=== PATIENT | female | born 1980 | race American Indian/Alaskan Native ===

== ENCOUNTER 2017-10-14 09:14 | Emergency (ER) | payer OTHER ==
[2017-10-14 10:16] LABS: Basophils # (Auto) 0.1 K/mm3 (0.0-0.1); Basophils % (Auto) 0.7 % (0.0-1.8); Eosinophils # (Auto) 0.3 K/mm3 (0.0-0.4); Eosinophils % (Auto) 2.7 % (0.0-4.3); Hematocrit 46.5 % (30.3-42.9); Lymphocytes # (Auto) 2.6 K/mm3 (1.2-5.4); Lymphocytes % (Auto) 25.9 % (13.4-35.0); Mean Corpuscular HGB Conc 34 % (30-34); Mean Corpuscular Hemoglobin 31 pg (28-32); Mean Corpuscular Volume 91 fl (79-97); Monocytes # (Auto) 0.5 K/mm3 (0.0-0.8); Monocytes % (Auto) 4.9 % (0.0-7.3); Platelet Count 303 K/mm3 (140-440); Red Blood Count 5.13 M/mm3 (3.65-5.03); Red Cell Distribution Width 13.4 % (13.2-15.2)
[2017-10-14 10:32] LABS: BUN/Creatinine Ratio 10; Blood Urea Nitrogen 7 mg/dL (7-17); Calcium 8.6 mg/dL (8.4-10.2); Hemolysis Index 7
--- NOTE | 2017-10-14 10:44 | Emergency Department Report ---
ED Psych HPI - General Chief Complaint: Medical Clearance Stated Complaint: KASHIF EVSHAHIDA Time Seen by Provider: 10/14/17 10:39 Source: patient, EMS Mode of arrival: Stretcher - History of Present Illness Initial Comments: The patient is a 32 year old female that states that she has been depressed for some time but not currently under therapy. He states that she took a total of 20 pills or less beginning at 4:30 this morning. They included Amoxil, Lortab, ibuprofen, tramadol and she states 4 of a unknown antidepressant which was not hers. She called EMS when she began to experience itching and "hives". She did not have any respiratory symptoms. She told the nurse several minutes after she was here that she had substernal chest pain and so an EKG was performed. At the time of my arrival the chest pain was resolved and the patient had no specific symptoms other than her ongoing depression. She relates this to situational with her family. She has never had a previous suicidal gesture. MD Complaint: suicidal ideation, feels depressed -: Gradual, month(s) Associated Psychiatric Symptoms: suicidal ideation History of same: No Quality: intermittent Improves With: none Worsens With: none Context: significant life stressor Associated Symptoms: denies other symptoms (now asymptomatic otherwise) Treatments Prior to Arrival: none (no psychiatric counseling) - Related Data Previous Rx's Medication Instructions Recorded Last Taken Type Amoxicillin 1,000 mg PO Q6HR #60 tablet 09/10/14 Unknown Rx HYDROcodone/APAP 5-325 [[place] 1 each PO Q6HR PRN #60 tablet 09/10/14 Unknown Rx 5/325] Ibuprofen [Motrin] 600 mg PO Q8H PRN #60 tablet 11/06/14 Unknown Rx traMADol [Ultram] 50 mg PO Q6HR PRN #20 tablet 11/06/14 Unknown Rx Allergies Allergy/AdvReac Type Severity Reaction Status Date / Time amoxicillin Allergy Hives Verified 10/14/17 09:42 ED Review of Systems ROS: Stated complaint: KASHIF EVAL Other details as noted in HPI Constitutional: denies: chills, fever Eyes: denies: eye pain, eye discharge, vision change ENT: denies: ear pain, throat pain Respiratory: denies: cough, shortness of breath, wheezing Cardiovascular: denies: chest pain, palpitations Endocrine: no symptoms reported Gastrointestinal: denies: abdominal pain, nausea, diarrhea Genitourinary: denies: urgency, dysuria, discharge Musculoskeletal: denies: back pain, joint swelling, arthralgia Skin: as per HPI, other (hives and itching). denies: rash, lesions Neurological: denies: headache, weakness, paresthesias Psychiatric: depression, suicidal thoughts. denies: anxiety Hematological/Lymphatic: denies: easy bleeding, easy bruising ED Past Medical Hx - Past Medical History Previous Medical History?: No Additional medical history: Pt reports extensive family hx of Bipolar/ Schizophrenia - Surgical History Past Surgical History?: Yes Additional Surgical History: tubal ligation - Social History Smoking Status: Current Every Day Smoker Substance Use Type: Cocaine - Medications Home Medications: Home Medications Medication Instructions Recorded Confirmed Last Taken Type Amoxicillin 1,000 mg PO Q6HR #60 tablet 09/10/14 Unknown Rx HYDROcodone/APAP 5-325 [[place] 1 each PO Q6HR PRN #60 tablet 09/10/14 Unknown Rx 5/325] Ibuprofen [Motrin] 600 mg PO Q8H PRN #60 tablet 11/06/14 Unknown Rx traMADol [Ultram] 50 mg PO Q6HR PRN #20 tablet 11/06/14 Unknown Rx ED Physical Exam - General Limitations: No Limitations General appearance: alert, in no apparent distress - Head Head exam: Present: atraumatic, normocephalic - Eye Eye exam: Present: normal appearance, PERRL, EOMI. Absent: scleral icterus - ENT ENT exam: Present: normal orophraynx, mucous membranes moist - Neck Neck exam: Present: normal inspection, other (no swelling). Absent: tenderness , meningismus - Respiratory Respiratory exam: Present: normal lung sounds bilaterally. Absent: respiratory distress - Cardiovascular Cardiovascular Exam: Present: regular rate, normal rhythm. Absent: systolic murmur, diastolic murmur, rubs, gallop - GI/Abdominal GI/Abdominal exam: Present: soft, normal bowel sounds. Absent: distended, tenderness, guarding, rebound, rigid - Extremities Exam Extremities exam: Present: normal inspection, full ROM, normal capillary refill. Absent: tenderness, pedal edema, joint swelling, calf tenderness - Back Exam Back exam: Present: normal inspection - Neurological Exam Neurological exam: Present: alert, oriented X3, CN II-XII intact. Absent: motor sensory deficit - Psychiatric Psychiatric exam: Present: depressed, flat affect - Skin Skin exam: Present: warm, dry, intact, normal color. Absent: rash ED Course Vital Signs 10/14/17 10/14/17 10/14/17 09:19 09:31 09:34 Temperature 98.0 F Pulse Rate 84 Respiratory 18 Rate Blood Pressure 134/99 134/99 134/99 O2 Sat by Pulse 98 100 98 Oximetry 10/14/17 10/14/17 10/14/17 10:01 10:31 11:01 Temperature Pulse Rate 94 H 141 H Respiratory Rate Blood Pressure 134/99 152/106 147/110 O2 Sat by Pulse 97 96 Oximetry 10/14/17 10/14/17 10/14/17 11:30 12:00 12:30 Temperature Pulse Rate 81 84 Respiratory Rate Blood Pressure 132/84 151/100 141/90 O2 Sat by Pulse 96 98 100 Oximetry - Reevaluation(s) Reevaluation #1: 10/14/17 13:22 Patient remains asymptomatic. Her 12-lead EKG was normal. I think she will be medically cleared. Her psychiatric evaluation is pending. I presume placement will occur. Reevaluation #2: It is possible that the patient had an allergic reaction to amoxicillin. I can' t confirm it based on her initial exam nor excluded. It is best that she gets tested before she retake a penicillin product. 10/14/17 13:24 Reevaluation #3: Discussed with mental health counselor. She is aware of the executed 1013. 10/14/17 15:23 ED Medical Decision Making - Lab Data Result diagrams: 10/14/17 10:01 10/14/17 10:01 Laboratory Results - last 24 hr 10/14/17 10/14/17 10/14/17 10:01 10:01 10:01 WBC RBC Hgb Hct MCV MCH MCHC RDW Plt Count Lymph % (Auto) [place] % (Auto) Eos % (Auto) Baso % (Auto) Lymph # [place] # Eos # Baso # Seg Neutrophils % Seg Neutrophils # Sodium 141 Potassium 3.5 L Chloride 103.8 Carbon Dioxide 23 Anion Gap 18 BUN 7 Creatinine 0.7 Estimated GFR > 60 BUN/Creatinine Ratio 10 Glucose 79 Calcium 8.6 HCG, Qual Negative Plasma/Serum Alcohol 0.02 10/14/17 10:01 WBC 9.9 RBC 5.13 H Hgb 16.0 H Hct 46.5 H MCV 91 MCH 31 MCHC 34 RDW 13.4 Plt Count 303 Lymph % (Auto) 25.9 [place] % (Auto) 4.9 Eos % (Auto) 2.7 Baso % (Auto) 0.7 Lymph # 2.6 [place] # 0.5 Eos # 0.3 Baso # 0.1 Seg Neutrophils % 65.8 Seg Neutrophils # 6.5 Sodium Potassium Chloride Carbon Dioxide Anion Gap BUN Creatinine Estimated GFR BUN/Creatinine Ratio Glucose Calcium HCG, Qual Plasma/Serum Alcohol Laboratory Results - last 24 hr 10/14/17 10/14/17 10/14/17 10:01 10:01 10:01 WBC RBC Hgb Hct MCV MCH MCHC RDW Plt Count Lymph % (Auto) [place] % (Auto) Eos % (Auto) Baso % (Auto) Lymph # [place] # Eos # Baso # Seg Neutrophils % Seg Neutrophils # Sodium 141 Potassium 3.5 L Chloride 103.8 Carbon Dioxide 23 Anion Gap 18 BUN 7 Creatinine 0.7 Estimated GFR > 60 BUN/Creatinine Ratio 10 Glucose 79 Calcium 8.6 HCG, Qual Salicylates < 0.3 L Acetaminophen < 5.0 L Plasma/Serum Alcohol 10/14/17 10/14/17 10/14/17 10:01 10:01 10:01 WBC 9.9 RBC 5.13 H Hgb 16.0 H Hct 46.5 H MCV 91 MCH 31 MCHC 34 RDW 13.4 Plt Count 303 Lymph % (Auto) 25.9 [place] % (Auto) 4.9 Eos % (Auto) 2.7 Baso % (Auto) 0.7 Lymph # 2.6 [place] # 0.5 Eos # 0.3 Baso # 0.1 Seg Neutrophils % 65.8 Seg Neutrophils # 6.5 Sodium Potassium Chloride Carbon Dioxide Anion Gap BUN Creatinine Estimated GFR BUN/Creatinine Ratio Glucose Calcium HCG, Qual Negative Salicylates Acetaminophen Plasma/Serum Alcohol 0.02 - EKG Data -: EKG Interpreted by Me EKG shows normal: sinus rhythm, axis, intervals, QRS complexes, ST-T waves Rate: normal - EKG Data Interpretation: other (nonspecific T-wave inversions V2 V3.) Critical care attestation.: If time is entered above; I have spent that time in minutes in the direct care of this critically ill patient, excluding procedure time. ED Disposition Clinical Impression: Allergy to amoxicillin Suicide gesture Qualifiers: Encounter type: initial encounter Qualified Code(s): X83.8XXA - Intentional self-harm by other specified means, initial encounter Depression Qualifiers: Depression Type: major depressive disorder Major depression recurrence: recurrent Active/Remission status: currently active Major depression episode severity: severe Psychotic features: without psychotic features Qualified Code(s ): F33.2 - Major depressive disorder, recurrent severe without psychotic features Disposition: DC/[place]-[facility] Is pt being admited?: No Does the pt Need Aspirin: No Condition: Stable Referrals: PRIMARY CARE, [Primary Care Provider] - 3-5 Days Time of Disposition: 15:23
[2017-10-14] MEDS ORDERED: ALUM-MAG HYDROX-SIMETH 200-200-20MG/5ML PO ONE (13:47)
[2017-10-14 14:44] LABS: Bacteria,Urine 1+ /HPF (Negative); Bilirubin,Urine MOD (Negative); Blood,Urine LG (Negative); Color,Urine Amber (Yellow); Mucus,Urine FEW /HPF; RBC,Urine > 182.0 /HPF (0.0-6.0)
[2017-10-14 14:46] LABS: Ictotest,Urine Negative (Negative)
[2017-10-14 14:51] LABS: Benzodiazepines Screen,Urine PRESUMPTIVE NEGATIVE; Cannabinoid Screen,Urine PRESUMPTIVE NEGATIVE; Methadone Screen,Urine PRESUMPTIVE NEGATIVE; Opiate Screen,Urine PRESUMPTIVE NEGATIVE
[2017-10-14 15:11] LABS: Amphetamine Screen,Urine PRESUMPTIVE POSITIVE; Cocaine Screen,Urine PRESUMPTIVE POSITIVE
[2017-10-14] MEDS ORDERED: MILK OF MAGNESIA PO PRN (15:24)
[2017-10-14] MEDS ORDERED: TYLENOL PO PRN (15:24)
[2017-10-14] MEDS ORDERED: ALUM-MAG HYDROX-SIMETH 200-200-20MG/5ML PO PRN (15:24)
[2017-10-15] MEDS ORDERED: ALUM-MAG HYDROX-SIMETH 200-200-20MG/5ML PO ONE (01:11)
[2017-10-15] MEDS ORDERED: LIDOCAINE VISCOUS 2% MM ONE (01:13)
--- NOTE | 2017-10-15 14:10 | Consultation ---
History of Present Illness - Reason for Consult Consult date: 10/15/17 Reason for consult: Mental Health Evaluation Requesting physician: MOODY CHANDLER - Chief Complaint Chief complaint: "I was stressed" - History of Present Psychiatric Illness 32 year old female that states that she has been depressed for some time but not currently under therapy. Today the patient is calm and cooperative during the assessment. She stated experiencing life stressors the past 6 months. She stated that she became "overwhelmed" yesterday and decided to take 20 different pills to kill herself. She stated that she took 4 antidepressant pills that didn 't belong to her. She denies a previous suicide attempt when asked. Currently, she denies SI's, but rate her depression 6/10, with 10 being the worse. She denies any manic episodes in the past. She denies HI's and AVH's. She denies erratic sleep and a poor appetite. She acknowledged recreational drug use, but denies excessive alcohol consumption (etoh). Medications and Allergies Allergies Allergy/AdvReac Type Severity Reaction Status Date / Time amoxicillin Allergy Hives Verified 10/14/17 09:42 Home Medications Medication Instructions Recorded Confirmed Last Taken Type No Known Home Medications [No 10/14/17 10/14/17 Unknown History Reported Home Medications] Active Meds: Active Medications Acetaminophen (Tylenol) 650 mg PO Q4HR PRN PRN Reason: Pain MILD(1-3)/Fever >100.5/TESFAYE Al Hydrox/Mg Hydrox/Simethicone (Alum-Mag Hydrox-Simeth 881-297-00mg/5ml) 30 ml PO Q4HR PRN PRN Reason: Indigestion Last Admin: 10/14/17 22:12 Dose: 30 ml Magnesium Hydroxide (Milk Of Magnesia) 30 ml PO Q12HR PRN PRN Reason: Constipation Past psychiatric history - Past Medical History Past Medical History: No medical history Past Surgical History: Other (Tubal Ligation) - past Psychiatric treatment and history psychiatric treatment history: Denies a psy hx and fam psy hx. - Social History Social history: lives with family Mental Status Exam - Vital signs Last Vital Signs Temp 97.9 F 10/14/17 19:53 Pulse 78 10/14/17 19:53 Resp 18 10/14/17 19:53 BP 124/89 10/14/17 19:53 Pulse Ox 98 10/14/17 19:53 - Exam Narrative exam: MSE: Appearance: calm, cooperative Behavior: regular eye contact Speech: regular rate and tone Mood: "okay" Affect: normal Thought Process: circumstantial Thought Content: denies SI/HI's and AVH's Motor Activity: ambulatory Cognition: A/O x 3 Insight: variable Judgment: variable Results Result Diagrams: 10/14/17 10:01 10/14/17 10:01 Abnormal lab results 10/14/17 Range/Units 14:00 Ur Specific [place] 1.034 H (1.003-1.030) Urine WBC (Auto) 42.0 H (0.0-6.0) /HPF U Epithel Cells (Auto) 15.0 H (0-13.0) /HPF All other labs normal. Assessment and Plan Assessment and plan: Impression: MDD, Severe Type. Substance Use DO (cocaine/amphetamines). Today the patient is calm and cooperative during the assessment. Overdose on multiple pills. The patient minimizes her actions. QTc 418. DDx: R/O Bipolar DO, R/O Substance Induced Mood DO Recommendation/Plan: Continue 1013 with placement to inpatient psy services. Monitor the patient for serotonin syndrome. Possibly start an antidepressant in 24 hours for depression.
[2017-10-15 16:30] VITALS: BP 128/79
== END 2017-10-15 16:32 | disposition designated cancer center or children's hospital (05) ==
LOC: EEVIPCON 09:14 → ED 09:14
DX: T36.0X2A Poisoning by penicillins, intentional self-harm, initial encounter (principal); F33.2 Major depressive disorder, recurrent severe without psychotic features; Z88.1 Allergy status to other antibiotic agents; F17.200 Nicotine dependence, unspecified, uncomplicated; Y92.89 Other specified places as the place of occurrence of the external cause
CPT/HCPCS: 36415; 80048; 80307; 81001; 84703; 85025; 93005; 93010; 99285; G0480; 80320

== ENCOUNTER 2021-02-10 14:36 | Emergency (ER) | payer SELFPAY ==
[2021-02-10 14:50] VITALS: BP 131/89
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
== END 2021-02-10 16:05 | disposition home or self-care (01) ==
LOC: ED 14:36
DX: S16.1XXA Strain of muscle, fascia and tendon at neck level, initial encounter (principal); M62.830 Muscle spasm of back; Z98.890 Other specified postprocedural states; F17.290 Nicotine dependence, other tobacco product, uncomplicated; Z88.0 Allergy status to penicillin; V89.2XXA Person injured in unspecified motor-vehicle accident, traffic, initial encounter; Y93.89 Activity, other specified; Y92.89 Other specified places as the place of occurrence of the external cause; Y99.8 Other external cause status
CPT/HCPCS: 99281